=== PATIENT | female | born 1980 | race Caucasian/White ===

== ENCOUNTER 2021-09-29 09:33 | Emergency (ER) | payer BC, MEDICAID, SELFPAY ==
[2021-09-29 09:44] VITALS: BP 153/88; PULSE 98; RESP 18; TEMP 37.2; O2SAT 99
--- NOTE | 2021-09-29 10:19 | ED.URI ---
HPI - URI/Sore Throat General Chief Complaint: Upper Respiratory Infection Stated Complaint: upper respiratory Source: patient Mode of arrival: ambulatory Limitations: no limitations History of Present Illness HPI Narrative: Patient is a 40-year-old female who presents complaining of of cough, congestion x5 days. She also reports sore throat and reports slight tightness in chest. She reports Covid testing by PCR negative on . She reports taking [id number] Mucinex with limited relief. She denies all other complaints at this time. Related Data Home Medications Medication Instructions Recorded Confirmed metformin 1,000 mg PO BID 09/29/21 09/29/21 Allergies Allergy/AdvReac Type Severity Reaction Status Date / Time No Known Allergies Verified 09/29/21 10:41 Review of Systems Review of Systems: CONSTITUTIONAL: Denies fever, chills, or sweats. EYES: Denies visual changes, redness, or discharge. ENT: Reports congestion and sore throat CARDIOVASCULAR: Denies chest pain, palpitations, or edema. RESPIRATORY: Reports cough, denies dyspnea. GASTROINTESTINAL: Denies abdominal pain, nausea, vomiting, or diarrhea. GENITOURINARY: Denies dysuria or hematuria. SKIN: Denies rash or itching. MUSCULOSKELETAL: Denies back pain, joint pain, or myalgia. NEUROLOGIC: Denies headache, numbness, dizziness, or weakness. PSYCHIATRIC: Denies anxiety or depression. [facility] Past Medical History Medical History (Updated 09/29/21 @ 11:37 by SHAKIR Winkler) Anemia Diabetes GERD (gastroesophageal reflux disease) Hypercholesterolemia induced hypertension Surgical History Surgical History History of lumpectomy of right breast Hx of tonsillectomy Family History Family History Other Diabetes mellitus Family history of Hodgkin's lymphoma Family history of alcoholism Family history of cardiovascular disease Family history of chronic obstructive pulmonary disease Family history of glaucoma Hypertension Social History Social History (Updated 09/29/21 @ 11:37 by SHAKIR Winkler) Smoking status: Never smoker Alcohol intake: never Substance use: never Living arrangements: with family Comments At the time of signature, I have reviewed and agree with nursing past medical, surgical, social, and family history unless otherwise noted. Please see nursing chart for further information. There is no relevant family history pertinent to the presenting complaint. Exam Narrative: GENERAL: Well-appearing, well-nourished, and in no acute distress. HEAD: Normocephalic, atraumatic. EYES: EOMI. No redness or drainage. Conjunctiva are normal. ENT: Mucous membranes pink and moist. Nares clear. No rhinorrhea. TMs normal bilaterally. Throat with moderate erythema and edema. Uvula midline. NECK: AROM. Supple. No lymphadenopathy. CHEST: No respiratory distress. HEART: Regular rate and rhythm. EXTREMITIES: Normal range of motion. No edema. SKIN: Warm, dry, no rash. NEURO: No focal deficits. Alert and oriented x3. Gait steady. PSYCH: Normal affect. No signs of depression or anxiety. Course Vital Signs Vital signs: Vital Signs Temperature 37.2 C 09/29/21 09:44 Pulse Rate 98 09/29/21 09:44 Respiratory Rate 18 09/29/21 09:44 Blood Pressure 153/88 H 09/29/21 09:44 Pulse Oximetry 99 09/29/21 09:44 Temperature 37.2 C 09/29/21 09:44 Pulse Rate 98 09/29/21 09:44 Respiratory Rate 18 09/29/21 09:44 Blood Pressure 153/88 H 09/29/21 09:44 Pulse Oximetry 99 09/29/21 09:44 Reviewed-patient is informed that they may have pre-hypertension or hypertension based on a blood pressure reading. I recommend the patient call the primary care provider listed on their discharge instructions or a physician of their choice this week to arrange follow-up for further evaluati
== END 2021-09-29 10:25 | disposition home or self-care (01) ==
PROVIDERS: Emergency Provider Nurse Practitioner; PCP Nurse Practitioner Family
DX: J06.9 Acute upper respiratory infection, unspecified (principal); J02.9 Acute pharyngitis, unspecified; D64.9 Anemia, unspecified; E11.9 Type 2 diabetes mellitus without complications; K21.9 Gastro-esophageal reflux disease without esophagitis; E78.00 Pure hypercholesterolemia, unspecified
CPT/HCPCS: 99203; G0463

== ENCOUNTER 2022-05-07 14:30 | Emergency (ER) | payer BC, MEDICAID, SELFPAY ==
[2022-05-07 14:37] VITALS: BP 131/74; PULSE 84; RESP 16; TEMP 36.9; O2SAT 99
--- NOTE | 2022-05-07 14:41 | ED.URI ---
HPI - URI/Sore Throat General Chief Complaint: Upper Respiratory Infection Stated Complaint: Sore Throat Time Seen by Provider: 05/07/22 14:41 Source: patient and RN notes reviewed History of Present Illness HPI Narrative: Patient is a 41-year-old female who presents the urgent care with complaints of a sore throat for the last 3 days. Patient states that it for started off with a mild cough and congestion and then turned into a severe sore throat. Patient states that she has a weekly COVID test at work and her last 1 was today which was negative. Denies of any ill exposures, fever, nausea, vomiting or upper respiratory complaints. No acute distress noted. Patient read the plan of care. Some parts of this dictation were generated by voice recognition software and may contain typographical and/or grammatical inaccuracies. Related Data Home Medications Medication Instructions Recorded Confirmed metformin 1,000 mg tablet 1,000 mg PO BID 09/29/21 05/07/22 methimazole 10 mg tablet 10 mg PO DAILY 05/07/22 05/07/22 metoprolol tartrate 05/07/22 Allergies Allergy/AdvReac Type Severity Reaction Status Date / Time No Known Allergies Verified 05/07/22 14:55 Review of Systems Review of Systems: CONSTITUTIONAL: Denies fever, chills, or sweats. EYES: Denies visual changes, redness, or discharge. ENT: Reports of sore throat, postnasal drainage and congestion CARDIOVASCULAR: Denies chest pain, palpitations, or edema. RESPIRATORY: Denies cough or dyspnea. GASTROINTESTINAL: Denies abdominal pain, nausea, vomiting, or diarrhea. GENITOURINARY: Denies dysuria or hematuria. SKIN: Denies rash or itching. MUSCULOSKELETAL: Denies back pain, joint pain, or myalgia. NEUROLOGIC: Denies headache, numbness, or weakness. All other systems reviewed are negative, except as documented in HPI. [facility] Past Medical History Medical History (Updated 05/07/22 @ 15:06 by SHAKIR Christianson) Anemia Diabetes GERD (gastroesophageal reflux disease) Hypercholesterolemia induced hypertension Surgical History Surgical History History of lumpectomy of right breast Hx of tonsillectomy Family History Family History Other Diabetes mellitus Family history of Hodgkin's lymphoma Family history of alcoholism Family history of cardiovascular disease Family history of chronic obstructive pulmonary disease Family history of glaucoma Hypertension Social History Social History (Updated 09/29/21 @ 11:37 by Lorna Melendez, [facility]) Smoking status: Never smoker Alcohol intake: never Substance use: never Comments At the time of my signature, I reviewed and agree with the nursing past medical, surgical, social, and family history. There is no relevant family history pertinent to the patient complaint. Exam Narrative: GENERAL: This is a well-nourished, well-developed patient, in no apparent distress. HEAD: normocephalic, atraumatic. EYES: PERRL. Sclera clear/white. Vision is grossly intact. EARS: External ears normal, auditory canals clear and without drainage, TMs normal without perforation. Hearing grossly intact. NOSE: External nose normal with no obvious nasal discharge, nares without redness, no rhinorrhea. THROAT: Mucous membranes moist, moderate erythema noted posterior pharynx and mild bilateral exudate NECK: Neck supple, non-tender without lymphadenopathy CARDIOVASCULAR: Regular rate and rhythm without murmurs, gallops, or rubs. RESPIRATORY: Clear to auscultation. Breath sounds equal bilaterally. No wheezes, rales, or rhonchi. SKIN: warm, intact with no suspicious lesions or rash, good texture and turgor. NEURO: awake, alert, and oriented to person, place and time. There were no obvious focal neurologic abnormalities. EXTREMITIES: No clubbing, cyanosis, or edema. Course Course Level of Care: Carson Mehta
== END 2022-05-07 15:15 | disposition home or self-care (01) ==
PROVIDERS: Emergency Provider Nurse Practitioner Family; PCP Nurse Practitioner Family
DX: J02.9 Acute pharyngitis, unspecified (principal); E11.9 Type 2 diabetes mellitus without complications; K21.9 Gastro-esophageal reflux disease without esophagitis; E78.00 Pure hypercholesterolemia, unspecified; Z79.84 Long term (current) use of oral hypoglycemic drugs
CPT/HCPCS: 87081; 87880; 99213; G0463

== ENCOUNTER 2022-12-01 08:25 | Outpatient (CLI) | payer BC, MEDICAID, SELFPAY ==
--- NOTE | ~2022-12-01 | MR_ITS ---
MRI of the lumbar spine Clinical History: Pain, neuropathy Technique: Axial T2-weighted images, and sagittal T1-weighted, T2-weighted, and T2 fat-sat images wer e acquired. Findings: No fracture or subluxation seen in the lumbar spine. Vertebral bodies maintain normal heigh t and alignment. No suspicious bone marrow signal abnormality seen. At L1-L2 and L2-L3, there is no disc bulge or herniation. No spinal canal stenosis or neural foramina l narrowing at these levels. At L3-L4, there is a central disc protrusion superimposed upon mild diffuse disc bulge. There is mini mal compression of the ventral thecal sac at this level. Neural foramina are preserved. At L4-L5, there is a small central disc protrusion with annular tear. There is mild facet arthropathy . No spinal canal stenosis or neural foraminal narrowing. At L5-S1, there is advanced degenerative disc disease with diffuse disc bulge and small disc extrusio n centrally. There is focal mild thecal sac compression. There is facet arthropathy. There is moderat e to advanced right neural foraminal narrowing and [id number] left neural foraminal narrowing. Paravertebral soft tissues are unremarkable. Impression: Small disc extrusion at L5-S1 with underlying advanced degenerative disc change. Associated bilateral neural foraminal narrowing and mild thecal sac compression. Central disc protrusion at L3-L4 superimposed on disc bulge, with minimal compression of the ventral thecal sac. Annular tear within a small central disc protrusion at L4-L5. Reviewed, dictated and finalized at [facility]. TITATIVE MANAGER Impression: Small disc extrusion at L5-S1 with underlying advanced degenerative disc change . Associated bilateral neural foraminal narrowing and mild thecal sac compressi on. Central disc protrusion at L3-L4 superimposed on disc bulge, with minimal compr ession of the ventral thecal sac. Annular tear within a small central disc protrusion at L4-L5.
== END 2022-12-01 08:26 | disposition home or self-care (01) ==
PROVIDERS: PCP Internal Medicine; Visit Provider Internal Medicine
DX: M54.16 Radiculopathy, lumbar region (principal); M51.27 Other intervertebral disc displacement, lumbosacral region
CPT/HCPCS: 72148

== ENCOUNTER 2022-12-03 08:18 | Outpatient (CLI) | payer BC, MEDICAID, SELFPAY ==
[2022-12-03 20:18] LABS: Alanine Aminotransferase 40 U/L (6-35); Albumin Level 4.6 g/dL (3.5-5.1); Alkaline Phosphatase 40 U/L (38-126); Anion Gap 9 mmol/L (8-16); Aspartate Amino Transferase 46 U/L (14-36); Bilirubin,Total 0.3 mg/dL (0.2-1.3); Blood Urea Nitrogen 8 mg/dL (7-17); Calcium 9.2 mg/dL (8.4-10.2); Carbon Dioxide 26 mmol/L (22-30); Chloride 106 mmol/L (98-107); Cholesterol 224 mg/dL (0-200); Estimated Glomerular Filt Rate > 60; Glucose 124 mg/dL (65-110); HDL Direct 36 mg/dL; Potassium 4.3 mmol/L (3.4-5.0); Sodium 141 mmol/L (137-145); Triglycerides 236 mg/dL (<150)
[2022-12-03 20:40] LABS: Basophils Percent Auto 0.3 % (0.2-1.2); Eosinophils Absolute Auto 0.1 K/mm3 (0-0.3); Eosinophils Percent Auto 1.8 % (0-4.4); Hematocrit 39.9 % (37.0-47.0); Hemoglobin 13.3 g/dL (12.0-15.0); Immature Granulocyte Absolute 0.01 K/mm3 (0.00-0.031); Immature Granulocyte Percent A 0.2 % (0-0.5); Lymphocytes Absolute Auto 2.07 K/mm3 (0.9-3.2); Mean Corpuscular HGB Conc 33.3 g/dl (32-36); Mean Corpuscular Hemoglobin 31.1 pg (26-34); Mean Corpuscular Volume 93.2 fl (80-100); Mean Platelet Volume 8.6 fl (7.4-10.4); Monocytes Absolute Auto 0.4 K/mm3 (0.1-0.6); Monocytes Percent Auto 5.9 % (2.6-8.5); Neutrophils Absolute Auto 3.5 K/mm3 (1.3-6.7); Neutrophils Percent Auto 57.8 % (45.5-73.1); Platelet Count Result 317 k/mm3 (150-375); Red Blood Count 4.28 M/mm3 (4.2-5.4); Red Cell Distribution Width 12.5 % (11.5-14.5); White Blood Count 6.1 K/mm3 (4.5-10.0)
[2022-12-03 21:23] LABS: Creatinine Urine 37.4 mg/dL
[2022-12-03 21:27] LABS: MALB Creatinine Ratio 55.1 mg/g (0-30); Microalbumin Urine Random 20.6 mg/L (0-16.7)
[2022-12-03 21:30] LABS: Folic Acid > 20.0 ng/mL (2.76->20)
[2022-12-03 22:17] LABS: LDL Cholesterol Direct 133 mg/dL
[2022-12-05 11:39] LABS: Hemoglobin A1C 6.3 % (<5.7)
== END 2022-12-03 08:19 | disposition home or self-care (01) ==
LOC: ANHGOSHLAB 08:20
PROVIDERS: PCP Internal Medicine; Visit Provider Internal Medicine
DX: E78.00 Pure hypercholesterolemia, unspecified (principal); E05.90 Thyrotoxicosis, unspecified without thyrotoxic crisis or storm; E11.9 Type 2 diabetes mellitus without complications
CPT/HCPCS: 36415; 80053; 80061; 82043; 82607; 82746; 83036; 85025

== ENCOUNTER 2023-08-07 08:00 | Outpatient (CLI) | payer BC, MEDICAID, SELFPAY ==
[2023-08-07 15:04] LABS: Alanine Aminotransferase 26 U/L (6-35); Albumin Level 4.7 g/dL (3.5-5.1); Alkaline Phosphatase 40 U/L (38-126); Anion Gap 8 mmol/L (8-16); Aspartate Amino Transferase 40 U/L (14-36); Bilirubin,Total 0.4 mg/dL (0.2-1.3); Blood Urea Nitrogen 7 mg/dL (7-17); Calcium 9.1 mg/dL (8.4-10.2); Carbon Dioxide 30 mmol/L (22-30); Chloride 102 mmol/L (98-107); Cholesterol 203 mg/dL (0-200); Estimated Glomerular Filt Rate > 60; Glucose 106 mg/dL (65-110); HDL Direct 36 mg/dL; Potassium 4.3 mmol/L (3.4-5.0); Sodium 140 mmol/L (137-145); Triglycerides 144 mg/dL (<150)
[2023-08-07 15:15] LABS: LDL Cholesterol Direct 130 mg/dL
[2023-08-07 15:32] LABS: Creatinine Urine 113.4 mg/dL
[2023-08-07 15:35] LABS: Microalbumin Urine Random 38.5 mg/L (0-16.7)
== END 2023-08-07 08:01 | disposition home or self-care (01) ==
LOC: ANHGOSHLAB 08:04
PROVIDERS: PCP Internal Medicine; Visit Provider Internal Medicine
DX: R80.9 Proteinuria, unspecified (principal); R74.8 Abnormal levels of other serum enzymes; E78.00 Pure hypercholesterolemia, unspecified; E11.29 Type 2 diabetes mellitus with other diabetic kidney complication
CPT/HCPCS: 36415; 80053; 80061; 82043; 83036

== ENCOUNTER 2023-08-12 15:45 | Outpatient (CLI) | payer BC, MEDICAID, SELFPAY ==
[2023-08-12 18:32] LABS: Basophils Percent Auto 0.7 % (0.2-1.2); Eosinophils Absolute Auto 0.1 K/mm3 (0-0.3); Eosinophils Percent Auto 2.4 % (0-4.4); Hematocrit 39.1 % (37.0-47.0); Hemoglobin 13.2 g/dL (12.0-15.0); Immature Granulocyte Absolute 0.01 K/mm3 (0.00-0.031); Immature Granulocyte Percent A 0.2 % (0-0.5); Lymphocytes Absolute Auto 2.28 K/mm3 (0.9-3.2); Lymphocytes Percent Auto 38.8 % (18.3-44.2); Mean Corpuscular HGB Conc 33.8 g/dl (32-36); Mean Corpuscular Hemoglobin 30.8 pg (26-34); Mean Corpuscular Volume 91.4 fl (80-100); Mean Platelet Volume 8.8 fl (7.4-10.4); Monocytes Absolute Auto 0.4 K/mm3 (0.1-0.6); Monocytes Percent Auto 6.1 % (2.6-8.5); Neutrophils Absolute Auto 3.1 K/mm3 (1.3-6.7); Neutrophils Percent Auto 51.8 % (45.5-73.1); Platelet Count Result 336 k/mm3 (150-375); Red Blood Count 4.28 M/mm3 (4.2-5.4); Red Cell Distribution Width 11.9 % (11.5-14.5); White Blood Count 5.9 K/mm3 (4.5-10.0)
[2023-08-12 19:09] LABS: Thyroid Stimulating Hormone 0.151 uIU/mL (0.465-4.680)
[2023-08-12 20:00] LABS: Folic Acid > 20.0 ng/mL (2.76->20)
== END 2023-08-12 15:46 | disposition home or self-care (01) ==
LOC: ANHGOSHLAB 15:47
PROVIDERS: PCP Internal Medicine; Visit Provider Internal Medicine
DX: E05.90 Thyrotoxicosis, unspecified without thyrotoxic crisis or storm (principal); E11.9 Type 2 diabetes mellitus without complications; R53.83 Other fatigue
CPT/HCPCS: 36415; 82607; 82728; 82746; 84443; 85025

== ENCOUNTER 2023-12-25 08:39 | Outpatient (CLI) | payer BC, MEDICAID, SELFPAY ==
[2023-12-25 19:47] LABS: Basophils Percent Auto 0.6 % (0.2-1.2); Eosinophils Absolute Auto 0.1 K/mm3 (0-0.3); Eosinophils Percent Auto 2.1 % (0-4.4); Hematocrit 41.7 % (37.0-47.0); Hemoglobin 13.7 g/dL (12.0-15.0); Lymphocytes Absolute Auto 1.84 K/mm3 (0.9-3.2); Mean Corpuscular HGB Conc 32.9 g/dl (32-36); Mean Corpuscular Hemoglobin 30.6 pg (26-34); Mean Corpuscular Volume 93.3 fl (80-100); Mean Platelet Volume 8.8 fl (7.4-10.4); Monocytes Absolute Auto 0.3 K/mm3 (0.1-0.6); Monocytes Percent Auto 6.3 % (2.6-8.5); Neutrophils Absolute Auto 2.9 K/mm3 (1.3-6.7); Platelet Count Result 310 k/mm3 (150-375); Red Blood Count 4.47 M/mm3 (4.2-5.4); Red Cell Distribution Width 12.5 % (11.5-14.5); White Blood Count 5.3 K/mm3 (4.5-10.0)
[2023-12-25 19:48] LABS: LDL Cholesterol Direct 136 mg/dL
[2023-12-25 19:53] LABS: Creatinine Urine 62.7 mg/dL
[2023-12-25 20:00] LABS: MALB Creatinine Ratio 95.7 mg/g (0-30)
[2023-12-25 20:06] LABS: Thyroid Stimulating Hormone < 0.015 uIU/mL (0.465-4.680)
[2023-12-25 21:17] LABS: Alanine Aminotransferase 63 U/L (6-35); Albumin Level 4.6 g/dL (3.5-5.1); Alkaline Phosphatase 47 U/L (38-126); Anion Gap 10 mmol/L (8-16); Aspartate Amino Transferase 64 U/L (14-36); Bilirubin,Total 0.5 mg/dL (0.2-1.3); Blood Urea Nitrogen 9 mg/dL (7-17); Calcium 9.6 mg/dL (8.4-10.2); Carbon Dioxide 24 mmol/L (22-30); Chloride 103 mmol/L (98-107); Cholesterol 227 mg/dL (0-200); Estimated Glomerular Filt Rate > 60; Glucose 150 mg/dL (65-110); HDL Direct 34 mg/dL; Sodium 137 mmol/L (137-145); Triglycerides 302 mg/dL (<150)
[2023-12-25 21:25] LABS: Potassium 4.3 mmol/L (3.4-5.0)
[2023-12-25 23:32] LABS: Hemoglobin A1C 6.5 % (<5.7)
[2023-12-29 22:21] LABS: Apolipoprotein B 121 mg/dL (<90)
[2024-01-05 13:32] LABS: Estrogen 141 pg/mL
== END 2023-12-25 08:40 | disposition home or self-care (01) ==
LOC: ANHGOSHLAB 08:41
PROVIDERS: PCP Internal Medicine; Visit Provider Internal Medicine
DX: N95.1 Menopausal and female climacteric states (principal); E11.9 Type 2 diabetes mellitus without complications; E78.00 Pure hypercholesterolemia, unspecified; R74.8 Abnormal levels of other serum enzymes; R80.9 Proteinuria, unspecified; E05.90 Thyrotoxicosis, unspecified without thyrotoxic crisis or storm
CPT/HCPCS: 36415; 80053; 80061; 82043; 82172; 82672; 83001; 83036; 84443; 85025

== ENCOUNTER 2024-02-18 07:59 | Outpatient (CLI) | payer BC, MEDICAID, SELFPAY ==
[2024-02-18 13:40] LABS: Free T4 Free Thyroxine 0.88 ng/mL (0.78-2.19)
== END 2024-02-18 08:00 | disposition home or self-care (01) ==
LOC: ANHGOSHLAB 08:01
PROVIDERS: PCP Internal Medicine; Visit Provider Internal Medicine
DX: E05.90 Thyrotoxicosis, unspecified without thyrotoxic crisis or storm (principal)
CPT/HCPCS: 36415; 84439; 84443

== ENCOUNTER 2024-05-04 07:56 | Outpatient (CLI) | payer BC, MEDICAID, SELFPAY ==
[2024-05-04 12:53] LABS: Basophils Percent Auto 0.6 % (0.2-1.2); Eosinophils Absolute Auto 0.2 K/mm3 (0-0.3); Eosinophils Percent Auto 4.6 % (0-4.4); Hematocrit 38.9 % (37.0-47.0); Hemoglobin 13.2 g/dL (12.0-15.0); Immature Granulocyte Absolute 0.02 K/mm3 (0.00-0.031); Immature Granulocyte Percent A 0.4 % (0-0.5); Lymphocytes Absolute Auto 1.67 K/mm3 (0.9-3.2); Lymphocytes Percent Auto 33.5 % (18.3-44.2); Mean Corpuscular HGB Conc 33.9 g/dl (32-36); Mean Corpuscular Hemoglobin 31.4 pg (26-34); Mean Corpuscular Volume 92.4 fl (80-100); Monocytes Absolute Auto 0.3 K/mm3 (0.1-0.6); Neutrophils Absolute Auto 2.7 K/mm3 (1.3-6.7); Neutrophils Percent Auto 54.9 % (45.5-73.1); Platelet Count Result 316 k/mm3 (150-375); Red Blood Count 4.21 M/mm3 (4.2-5.4); Red Cell Distribution Width 12.6 % (11.5-14.5)
[2024-05-04 13:06] LABS: Alanine Aminotransferase 44 U/L (6-35); Albumin Level 4.6 g/dL (3.5-5.1); Alkaline Phosphatase 41 U/L (38-126); Anion Gap 12 mmol/L (4-12); Aspartate Amino Transferase 54 U/L (14-36); Bilirubin,Total 0.6 mg/dL (0.2-1.3); Blood Urea Nitrogen 11 mg/dL (7-17); Calcium 9.7 mg/dL (8.4-10.2); Carbon Dioxide 21 mmol/L (22-30); Chloride 106 mmol/L (98-107); Cholesterol 218 mg/dL (0-200); Estimated Glomerular Filt Rate > 60; Glucose 124 mg/dL (65-110); HDL Direct 35 mg/dL; Potassium 4.1 mmol/L (3.4-5.0); Sodium 139 mmol/L (137-145); Triglycerides 237 mg/dL (<150)
[2024-05-04 13:17] LABS: LDL Cholesterol Direct 141 mg/dL
[2024-05-04 13:48] LABS: Hemoglobin A1C 6.3 % (<5.7)
[2024-05-18 15:19] LABS: Apolipoprotein B 118 mg/dL
== END 2024-05-04 07:57 | disposition home or self-care (01) ==
LOC: ANHGOSHLAB 07:57
PROVIDERS: PCP Clinical Nurse Specialist; Visit Provider Internal Medicine
DX: E05.90 Thyrotoxicosis, unspecified without thyrotoxic crisis or storm (principal); E11.9 Type 2 diabetes mellitus without complications; E78.00 Pure hypercholesterolemia, unspecified
CPT/HCPCS: 36415; 80053; 80061; 82172; 83036; 84443; 85025

== ENCOUNTER 2024-08-06 07:55 | Outpatient (CLI) | payer BC, MEDICAID, SELFPAY ==
[2024-08-06 15:39] LABS: Alanine Aminotransferase 33 U/L (6-35); Albumin Level 4.5 g/dL (3.5-5.1); Alkaline Phosphatase 41 U/L (38-126); Anion Gap 10 mmol/L (4-12); Aspartate Amino Transferase 46 U/L (14-36); Bilirubin,Total 0.3 mg/dL (0.2-1.3); Blood Urea Nitrogen 8 mg/dL (7-17); Calcium 8.9 mg/dL (8.4-10.2); Carbon Dioxide 26 mmol/L (22-30); Chloride 101 mmol/L (98-107); Estimated Glomerular Filt Rate > 60; Glucose 104 mg/dL (65-110); Potassium 4.2 mmol/L (3.4-5.0); Sodium 137 mmol/L (137-145)
[2024-08-06 16:18] LABS: Creatinine Urine 236.5 mg/dL
[2024-08-06 16:22] LABS: MALB Creatinine Ratio 18.4 mg/g (0-30); Microalbumin Urine Random 43.5 mg/L (0-16.7)
[2024-08-06 16:44] LABS: Hemoglobin A1C 6.7 % (<5.7)
[2024-08-06 17:36] LABS: Vitamin D 25 Hydroxy 45.7 ng/mL
== END 2024-08-06 07:56 | disposition home or self-care (01) ==
LOC: ANHGOSHLAB 07:57
PROVIDERS: PCP Clinical Nurse Specialist; Visit Provider Clinical Nurse Specialist
DX: E11.9 Type 2 diabetes mellitus without complications (principal); R74.8 Abnormal levels of other serum enzymes; R80.9 Proteinuria, unspecified; E55.9 Vitamin D deficiency, unspecified; R74.01 Elevation of levels of liver transaminase levels
CPT/HCPCS: 36415; 80053; 82043; 82306; 83036

== ENCOUNTER 2025-01-03 12:02 | Emergency (ER) | payer BC, MEDICAID, SELFPAY ==
--- NOTE | ~2025-01-03 | XR_ITS ---
EXAMINATION: XR sacrum coccyx min 2V DATE: 01/03/2025 12:31 INDICATION: Tailbone pain. Fall. TECHNIQUE: 3 views of the sacrum and coccyx were obtained. COMPARISON: None. FINDINGS: Alignment is normal. No fracture. There is severe spondylosis at L5-S1. There is mild osteo arthritis of the sacroiliac joints. IMPRESSION: 1. No fracture. Reviewed, dictated and finalized at location A. ENSATION SPECIALIST IMPRESSION: 1. No fracture.
--- NOTE | 2025-01-03 12:07 | ED.LOWEXIN ---
HPI - Extremity Injury (Lower) General Chief Complaint: Extremity Injury, Lower Stated Complaint: Injured Tailbone Time Seen by Provider: 01/03/25 12:10 Source: patient Mode of arrival: ambulatory Limitations: no limitations History of Present Illness HPI Narrative: Fabiana is a 44-year-old female patient presenting to the clinic today with complaints of a tailbone injury. She reports that she fell 3 days ago when trying to get in to a PE. She reports that she fell onto the metal foot step on the jeep when trying to get in. Landed on her tailbone. Is having pain with sitting, lying flat, and standing in certain positions. She has been taking ibuprofen for pain. Related Data Allergies Allergy/AdvReac Type Severity Reaction Status Date / Time tramadol AdvReac Itching Verified 01/03/25 12:07 Review of Systems Review of Systems: Pertinent positives per HPI. Patient denies any fever, chills, rash, headache, visual changes, dizziness, cough, runny nose, sore throat, shortness of breath, chest pain, palpitations, nausea, vomiting, diarrhea, constipation, abdominal pain, or any urinary issues. [facility] Past Medical History Medical History Elevated liver enzymes Microalbuminuria due to type 2 diabetes mellitus Microalbuminuria Hyperthyroidism Lumbar radiculopathy, right Sciatic leg pain Thyroid disorder Diabetes Anemia induced hypertension GERD (gastroesophageal reflux disease) Hypercholesterolemia Surgical History Surgical History History of lumpectomy of right breast Hx of tonsillectomy Family History Family History Mother Diabetes mellitus Heart disease Hypertension Sibling Alcoholism Cancer Daughter Diabetes mellitus Other Family history of Hodgkin's lymphoma Family history of alcoholism Family history of cardiovascular disease Family history of chronic obstructive pulmonary disease Family history of glaucoma Social History Social History Smoking status: Current some day smoker Tobacco type: e-cigarettes/vaping Additional smoking assessment comments: smoked on and off for 20 years stopped a few years ago Alcohol intake: never Substance use: never Do You Feel Safe in your Home?: Yes Lack of Transportation: No Lack of Food: Never True Current Housing: I Have Housing Concerned About Future Housing: No Difficulty Paying Gas/Electric Bills: No Difficulty Paying for Meds: No Currently Unemployed: No Education: Trade/Vocational Certificate Difficulty w/ Childcare or Family Care: No Living arrangements: with family Comments At the time of my signature, I reviewed and agree with the nursing past medical, surgical, social, and family history. There is no relevant family history pertinent to the patient complaint. Exam Narrative: General: Well-developed, well nourished, in no apparent distress Head: Normocephalic, atraumatic. Cardio: Regular rate and rhythm, s1 and s2 normal, no murmur appreciated. Resp: Clear to auscultation bilaterally, no rhonchi, rales, wheezing or rubs. Musculoskeletal: No deformity, no bruising, tender to palpation over the coccyx, grossly normal range of motion, muscle strength strong and equal in BLE. SLT negative, patellar reflexes 2/4 bilaterally, negative foot drop, normal gait and station Course Course Emergency Course: Portions of this record may have been created with voice recognition software. Level of Care: Express Care Visit Vital Signs Vital signs: Vital signs reviewed MDM - Extremity Injury (Lower) MDM Narrative Medical decision making narrative: At the time of visit patient is resting comfortably on the exam table. Patient appears to be nontoxic. Diagnostics: X-rays negative for any sign of fracture or malalignment of the sacrum. Plan: I suspect patient has a sacrum contusion. Supportive measures were discussed with the patient and they voiced understanding discharge instructions and agrees to treatment plan. Return precautions reviewed Differential Diagnosis Differential diagnosis: Likely other (Contusion of sacrum, fracture sacrum) Imaging Data Radiologist's impression: ITS Impressions Sacrum and Coccyx X-Ray 01/03/25 12:36 IMPRESSION: 1. No fracture. Discharge Plan Discharge Clinical Impression: Contusion of sacrum Qualifiers: Encounter type: initial encounter Qualified Code(s): S30.0XXA - Contusion of lower back and pelvis, initial encounter Patient Disposition: Home, Self-Care Condition: Stable Instructions: Antibiotic Form, Contusion in Adults (ED) Additional Instructions: X-rays negative for any sign of fracture or malalignment May use a donut pillow for comfort. Apply ice to the affected area to help alleviate pain-20 minutes on/20 minutes off Continue taking ibuprofen and Tylenol as needed for pain Follow-up with your primary care doctor as needed Patient Language: Setswana Prescriptions: No Action methimazole 5 mg tablet 5 mg PO BID Qty: 270 0RF metformin 1,000 mg tablet 1,000 mg PO BID Qty: 180 1RF metoprolol succinate 25 mg tablet extended release 24 hr See Rx Instructions .ROUTE .COMPLEX Qty: 45 1RF Dose Instruction: TAKE 1/2 TABLET BY MOUTH ONCE DAILY Rx Instructions: TAKE 1/2 TABLET BY MOUTH ONCE DAILY Follow-up/Referrals: Kianna Stahl FORMULA WEIGHER-C [Primary Care Provider] - Time of Disposition: 12:44 Quality NIHSS Nursing Documentation ED NIHSS nursing documentation: reviewed/agree
[2025-01-03 12:08] VITALS: BP 125/84; PULSE 93; RESP 18; TEMP 36.8; O2SAT 100
== END 2025-01-03 12:47 | disposition home or self-care (01) ==
PROVIDERS: Emergency Provider Nurse Practitioner Family; PCP Clinical Nurse Specialist
DX: S30.0XXA Contusion of lower back and pelvis, initial encounter (principal); W19.XXXA Unspecified fall, initial encounter; E05.90 Thyrotoxicosis, unspecified without thyrotoxic crisis or storm; E11.9 Type 2 diabetes mellitus without complications; Z79.84 Long term (current) use of oral hypoglycemic drugs; E78.00 Pure hypercholesterolemia, unspecified; K21.9 Gastro-esophageal reflux disease without esophagitis
CPT/HCPCS: 72220; 99213; G0463

== ENCOUNTER 2025-04-13 12:36 | Outpatient (CLI) | payer BC, SELFPAY ==
--- NOTE | ~2025-04-13 | CT_ITS ---
EXAMINATION: CT abdomen pelvis w con DATE: 04/13/2025 11:04 INDICATION: Unspecified abdominal pain TECHNIQUE: Computed tomography (CT) of the abdomen and pelvis was performed with 100 mL Omnipaque-350 intravenous contrast. Automated exposure control and iterative reconstruction technique were employe d. The dose-length product was 1131.60 mGy-cm. COMPARISON: CT dated 05/01/2005 FINDINGS: Lung bases are clear. Heart size is normal. No pericardial or pleural effusion. Mild diffuse hepatic steatosis. Gallbladder, spleen, pancreas, bilateral adrenal glands and kidneys are normal. Moderate d iverticulosis centered at the splenic flexure the colon without adjacent from trace stranding to sugg est diverticulitis. Small bowel and appendix are normal. Bladder and anteverted uterus are normal. 1. 5 cm left ovarian cyst/follicle. 2.2 cm peripherally enhancing corpus luteum cyst in the right ovary. No free intraperitoneal gas or fluid. No pathologically enlarged abdominal or pelvic lymphadenopathy . Severe spondylosis at the lumbosacral junction with mild spondylosis and more cephalad lumbar and l ower thoracic spine. IMPRESSION: 1. 2.2 cm peripherally enhancing right ovarian corpus luteum cyst. No other acute intra-abdominal/pel christin process. 2. Diverticulosis. Reviewed, dictated and finalized at location A. IMPRESSION: 1. 2.2 cm peripherally enhancing right ovarian corpus luteum cyst. No other acu te intra-abdominal/pelvic process. 2. Diverticulosis.
--- OUTSIDE RECORDS SUMMARY | 2025-04-13 10:39 | XMS_ITS | Referral Summary ---
Author Organization [facility] Address [address] [place] [address] Care Team Providers Care Examination Supervisor Name Role Phone Regan Cortez DO Primary Care Provider [phone] Encounters Date Type Department Care Team Description 03/11/2025 Results Follow-Up [facility] [address] [address] Issa Talbert MD US Thyroid 03/08/2025 Results Follow-Up [facility] [address] [address] Issa Talbert MD TSH, T4, free, T3, free 02/28/2025 3:05 PM CDT - 02/28/2025 11:59 PM CDT Hospital Encounter [facility] [address] [place] [address] Multinodular goiter Discharge Disposition: Discharge to home or self care from Last 3 Months Allergies Active Allergy Reactions Criticality Noted Date Comments Amoxicillin Other (See comments) Low 10/07/2021 Tramadol Itching Low 10/07/2021 Medications metFORMIN (GLUCOPHAGE) 1,000 mg tablet Take 1 tablet (1,000 mg total) by mouth 2 (two) times a day with meals Active omeprazole (PriLOSEC) 20 mg capsule omeprazole 20 mg capsule,delayed release TAKE 1 CAPSULE BY MOUTH EVERY DAY Active cyclobenzaprine (FLEXERIL) 10 mg tablet Take 1 tablet (10 mg total) by mouth 3 (three) times a day as needed for muscle spasms 12 tablet 2 Active Additional Information Patient not taking.Reported on 11/15/2024 metoprolol XL (TOPROL-XL) 25 mg extended release tablet Take 0.5 tablets (12.5 mg total) by mouth daily 4 Active methIMAzole (TAPAZOLE) 5 mg tabletIndicatio ns:Hyperthyroid ism TAKE 2 TABLETS BY MOUTH EVERY DAY 60 tablet 2 5 Active Active Problems Problem Noted Date Diagnosed Date Rectocele 03/12/2024 Incomplete uterovaginal prolapse 12/26/2023 Cystocele, midline 12/26/2023 Urinary retention with incomplete bladder emptyi ng 12/26/2023 Mixed stress and urge urinary incontinence 12/26 External hemorrhoid 06/13/2022 Multinodular goiter 02/11/2022 Assessment & Plan (11/16/2024 9:40 AM HOTEL OFFICE MANAGER): Chronic, stable Ordered follow-up thyroid ultrasound to follow-up on thyroid nodules No compressive symptoms Assessment & Plan (05/17/2024 10:08 AM CDT): Chronic, stable Reviewed and discussed patient's recent thyroid ultrasound report no compressive symptoms Repeat thyroid ultrasound February 2025 Assessment & Plan (10/23/2023 9:04 AM HOTEL OFFICE MANAGER): Detected on Thyroid ultrasound on 01/05/22 Bilateral nodules between 1.2-1.5 cm stable in size on last ultrasound on 11/13/22 She forgot to do thyroid Ultrasound No clinical change Plan: She will get appt with new Sql Consultant Zaire Mackey/Jamie Repeat thyroid ultrasound with her new Endo. Assessment & Plan (05/26/2023 8:43 AM CDT): Detected on Thyroid ultrasound on 01/05/22 Bilateral nodules between 1.2-1.5 cm stable in size on last ultrasound on 11/13/22 Plan: Will continue to monitor Repeat thyroid ultrasound before next visit . Assessment & Plan (11/25/2022 8:46 AM HOTEL OFFICE MANAGER): Detected on Thyroid ultrasound on 01/05/22 Bilateral nodules between 1.2-1.5 cm stable in size on last ultrasound on 11/13/22 Plan: Will continue to monitor Repeat thyroid ultrasound in one year. Assessment & Plan (07/15/2022 9:20 AM CDT): Detected on Thyroid ultrasound on 01/05/22 Bilateral nodules between 1.2-1.5 cm Mild change in size on last ultrasound on 06/11/22 Plan: Will continue to monitor Repeat thyroid ultrasound in 2022 Assessment & Plan (04/16/2022 8:56 AM CDT): Thyroid ultrasound on 01/05/22 Bilateral nodules between 1.2-1.5 cm Plan: Stable based on clinical examination. Repeat thyroid ultrasound before next visit. Assessment & Plan (02/11/2022 9:04 AM CDT): Thyroid ultrasound on 01/05/22 Bilateral nodules between 1.2-1.5 cm Plan: We will monitor and repeat thyroid ultrasound in 6 month Hyperthyroidism 12/04/2021 Assessment & Plan (11/16/2024 9:40 AM HOTEL OFFICE MANAGER): History of hyperthyroidism, probably due to Graves disease Chronic, improving progressively Recent thyroid function tests are normal Advised to decrease methimazole to 5 mg oral daily Repeat thyroid function test as advised Follow-up in 6 months Assessment & Plan (05/17/2024 10:07 AM CDT): History of hyperthyroidism since 2021 Chronic, unknown status DD: Graves disease versus toxic nodular goiter Patient recently had labs checked with her PCP, we will try to obtain those lab results and further plans based on it For now continue taking methimazole 5 mg oral 3 tablets in morning Repeat a thyroid function test, include thyroid antibodies July 18, 2024 Follow-up in 4 months Assessment & Plan (10/23/2023 9:06 AM HOTEL OFFICE MANAGER): Chronic for few years- did not require treatment Labs on 10/09/21 Low TSH 0.00 High free T4 of 2.3 High free T3 of 5.1. Elevated TSI This could be Graves' disease on top of nodular goiter Started Methimazole on 01/01/22 Patient clinically euthyroid Last TSH was 0.2 on 05/26/23 with normal free T4 Plan: Continue same dose of Methimazole 5 days per week Check labs today I will adjust the dose if needed. Assessment & Plan (05/26/2023 8:41 AM CDT): Chronic for few years- did not require treatment Labs on 10/09/21 Low TSH 0.00 High free T4 of 2.3 High free T3 of 5.1. Elevated TSI This could be Graves' disease on top of nodular goiter Started Methimazole on 01/01/22 Patient clinically euthyroid Last TSH was 0.12 on 01/14/23 with normal free T4 Plan: Continue same dose of Methimazole 5 days per week Check labs today I will adjust the dose if needed. Assessment & Plan (11/25/2022 8:46 AM HOTEL OFFICE MANAGER): Chronic for few years- did not require treatment Labs on 10/09/21 Low TSH 0.00 High free T4 of 2.3 High free T3 of 5.1. Elevated TSI This could be Graves' disease on top of nodular goiter Started Methimazole on 01/01/22 Patient clinically euthyroid normal free T4 of 1.3 and T3 in June/2022 Plan: Continue same dose of Methimazole Continue on Metoprolol ( she is now using it for HTN) Check labs today I will adjust the dose if needed. Assessment & Plan (07/15/2022 9:21 AM CDT): Chronic for few years- did not require treatment Labs on 10/09/21 Low TSH 0.00 High free T4 of 2.3 High free T3 of 5.1. Elevated TSI This could be Graves' disease on top of nodular goiter Started Methimazole on 01/01/22 Patient clinically euthyroid Last TSH was 0.0 with normal free T4 of 1.3 on 04/16/22 Plan: Continue same dose of Methimazole Continue on Metoprolol ( she is now using it for HTN) Check labs today I will adjust the dose if needed. Assessment & Plan (04/16/2022 8:55 AM CDT): Chronic for few years- did not require treatment Labs on 10/09/21 Low TSH 0.00 High free T4 of 2.3 High free T3 of 5.1. Elevated TSI This could be Graves' disease on top of nodular goiter Started Methimazole on 01/01/22 Patient clinically euthyroid Last TSH was 0.0 with free T4 of 1.77 on 02/11/22 Plan: Continue same dose of Methimazole Continue on Metoprolol Check labs today I will adjust the dose if needed. Assessment & Plan (02/11/2022 9:03 AM CDT): Chronic for few years- did not require treatment Labs on 10/09/21 Low TSH 0.00 High free T4 of 2.3 High free T3 of 5.1. Elevated TSI This could be Graves' disease on top of nodular goiter Started Methimazole on 01/01/22 Plan: The diagnosis and abnormal labs reviewed and explained to patient Continue on Metoprolol Check labs today I will adjust the dose if needed. Assessment & Plan (12/04/2021 3:25 PM HOTEL OFFICE MANAGER): Chronic for few years- did not require treatment Enlarged thyroid on exam Labs on 10/09/21 Low TSH 0.00 High free T4 of 2.3 High free T3 of 5.1. This could be Graves' disease or toxic nodular goiter Plan: The possible diagnosis and abnormal labs reviewed and explained to patient Continue on Metoprolol Re- check labs to confirm diagnosis We will schedule thyroid ultrasound if labs confirmed hyperthyroidism. Follow up and further recommendation will be decided after we obtain above test results. Social History Tobacco Use Types Packs/Day Years Used Date Smoking Tobacco: Former Cigarettes Vaping Smokeless Tobacco: Never Tobacco Cessation:Counseling Given: Not Answered Comments:VAPE Alcohol Use Standard Drinks/Week Comments No 0 (1 standard drink = 0.6 oz pur e alcohol) PHQ-2 Answer Date Recorded PHQ-2 Total Score (If total score is 3 or more points, staff should administer the PHQ-9) 0 05/17/2024 Comments No Sex and Gender Information Value Date Recorded Sex Assigned at Not on file Legal Sex Female 9:21 AM CDT Gender Identity Not on file Sexual Orientation Not on file Last Filed Vital Signs Vital Sign Reading Time Taken Comments Blood Pressure 136/80 11/15/2024 3:04 PM HOTEL OFFICE MANAGER Pulse 76 11/15/2024 3:04 PM HOTEL OFFICE MANAGER Temperature 36.3 C (97.3 F) 11/01/2022 3:19 PM HOTEL OFFICE MANAGER Respiratory Rate 15 11/15/2024 3:04 PM HOTEL OFFICE MANAGER Oxygen Saturation 100% 11/01/2022 3:19 PM HOTEL OFFICE MANAGER Inhaled Oxygen Concentration - - Weight 98 kg (216 lb) 11/15/2024 3:04 PM HOTEL OFFICE MANAGER Height 170.2 cm (5' 7) 11/15/2024 3:04 PM HOTEL OFFICE MANAGER Body Mass Index 33.83 11/15/2024 3:04 PM HOTEL OFFICE MANAGER Plan of Treatment Not on file Procedures Procedure Name Priority Date/Time Associated Diagnosis Comments T3, FREE Routine 03/07/2025 8:10 AM CDT Hyperthyroidism T4, FREE Routine 03/07/2025 8:10 AM CDT Hyperthyroidism TSH Routine 03/07/2025 8:10 AM CDT Hyperthyroidism US THYROID Schedule Routine, Read Routine (OP Routine) 02/28/2025 4:02 PM CDT Multinodular goiter SCREENING MAMMOGRAM BILATERAL W AUGUSTINE Schedule Routine, Read Routine (OP Routine) 11/29/2023 9:23 AM HOTEL OFFICE MANAGER Screening mammogram, encounter for from Last 3 Months or Most Recently Relevant to Health Maintenance Results * T3, free (03/07/2025 8:10 AM CDT) Triiodothyronin e,Free,Serum 2.8 2.0 - 4.4 pg/mL [facility] - Blood 03/07/2025 8:10 AM CDT 03/07/2025 Narrative [facility] - 03/08/2025 4:07 AM CDT Performed at: [address] [id number] Sanding Machine Operator Or Tender: Washington Brooks PhD, Phone: [phone] Issa Mackey MD LAB BLOOD ORDERABLE S Final Result Performing Organization Address [facility] Co de Phone Number [facility] - 01 * TSH (03/07/2025 8:10 AM CDT) TSH 0.750 0.450 - 4.500 uIU/mL [facility] - 01 Blood 03/07/2025 8:10 AM CDT 03/07/2025 Narrative [facility] - 03/08/2025 4:07 AM CDT Performed at: [address] [place] [id number] Sanding Machine Operator Or Tender: Washington Brooks PhD, Phone: [phone] Issa Mackey MD LAB BLOOD ORDERABLE S Final Result Performing Organization Address [facility] de Phone Number [facility] - 01 * T4, free (03/07/2025 8:10 AM CDT) T4,Free(Direct) 1.02 0.82 - 1.77 ng/dL [facility] - 01 Blood 03/07/2025 8:10 AM CDT 03/07/2025 Narrative [facility] - 03/08/2025 4:07 AM CDT Performed at: [address] [id number] Sanding Machine Operator Or Tender: Washington Brooks PhD, Phone: [phone] us Issa Mackey MD LAB BLOOD ORDERABLE S Final Result Performing Organization Address [facility] de Phone Number [facility] - 01 * US Thyroid (02/28/2025 4:02 PM CDT) Anatomical Region Laterality Modality Head and Neck N/A Ultrasound 03/11/2025 8:26 AM CDT Narrative 03/11/2025 8:36 AM CDT EXAM DESCRIPTION: US THYROID REASON FOR STUDY: thyroid nodule TECHNIQUE: Ultrasound of the thyroid was performed with grayscale and color doppler. COMPARISON: Thyroid ultrasound 03/05/2024 FINDINGS: RIGHT: The right thyroid lobe measures 6.0 x 2.3 x 3.1 cm. The right thyroid lobe is heterogenous in echotexture. Mid anterior mixed cystic and solid nodule with isoechoic solid components measuring 1.1 x 0.5 x 0.9 cm. Circumscribed margins. No echogenic foci. TR 2. This previously measured 1.1 x 0.5 x 0.9 cm. Mid posterior predominantly solid, isoechoic nodule measuring 1.7 x 1.5 x 1.8 cm. Peripheral vascularity is noted. Circumscribed margins. No echogenic foci. TR 3. This previously measured 1.7 x 1.3 x 1.7 cm, stable when accounting for differences in technique. Superior mixed cystic and solid nodule with isoechoic solid components measuring 0.9 x 0.4 x 0.8 cm. Circumscribed margins. No echogenic foci. TR 2. This previously measured 1.0 x 0.5 x 0.6 cm. The nodule demonstrates an increased cystic appearance on this exam. LEFT: The left thyroid lobe measures 6.8 x 1.9 x 2.6 cm. The left thyroid lobe is heterogenous in echotexture. The previous left mid thyroid 1 cm nodule is not identified on this exam. No new left thyroid nodules. ISTHMUS: The isthmus measures 0.4 cm in AP dimension. The isthmus is heterogenous in echotexture. VASCULARITY: Normal. OTHER: No other significant finding. IMPRESSION: The previous 1 cm left mid thyroid nodule is not identified. Superior 0.9 cm right thyroid nodule stable in size, with an increased cystic component. TR 2. Stable 1.7 cm right mid thyroid isoechoic solid nodule. TR 3. Stable 1.1 cm mid anterior mixed cystic and solid nodule. TR 2. Follow-up ultrasound in 3 years is recommended, per ACR TI-RADS criteria. ACR TI-RADS Risk Category: 3 REFERENCE: According to the ACR Thyroid Imaging, Reporting and Data System (TI-RADS): White Paper of the ACR TI-RADS Committee Mar, 2017 recommendations regarding the management of thyroid nodules are as follows: 1. TI-RADS 1: Risk of malignancy <2%, no FNA or follow up required. 2. TI-RADS 2: Risk of malignancy <2%, no FNA or follow up required. 3. TI-RADS 3: Risk of malignancy 2%-5%. Nodules 1.5 cm or greater follow up at 1, 3 and 5 years recommended, for nodules 2.5 cm or greater FNA recommended. 4. TI-RADS 4: Risk of malignancy 5%-20% Nodules 1.0 cm or greater follow up at 1, 2, 3 and 5 years recommended, for nodules 1.5 cm or greater FNA recommended 5. TI-RADS 5: Risk of malignancy >20%. Nodules 0.5 cm or greater annual follow up for 5 years recommended, for nodules 1.0 cm or greater FNA recommended. The ACT TI-RADS committee recommends targeting no more than two nodules for FNA. If three or more nodules meet criteria for FNA, the two with the most suspicious appearance based on ACR TI-RADS points should be sampled. THIS IS AN ELECTRONICALLY VERIFIED FINAL REPORT 03/11/2025 8:36 AM - Electronically signed by Frank Palm M.D. KR: KR Report ID: [id number] Reading Location: [place] [address] Procedure Note Frank Palm MD - 03/11/2025 EXAM DESCRIPTION: US THYROID REASON FOR STUDY: thyroid nodule TECHNIQUE: Ultrasound of the thyroid was performed with grayscale andcolor doppler. COMPARISON: Thyroid ultrasound 03/05/2024 FINDINGS: RIGHT: The right thyroid lobe measures 6.0 x 2.3 x 3.1 cm. The right thyroid lobe is heterogenous in echotexture. Mid anterior mixed cystic and solid nodule with isoechoic solid components measuring 1.1 x 0.5 x 0.9 cm. Circumscribed margins. No echogenic foci.TR 2. This previously measured 1.1 x 0.5 x 0.9 cm. Mid posterior predominantly solid, isoechoic nodule measuring 1.7 x 1.5 x1.8 cm. Peripheral vascularity is noted. Circumscribed margins. Noechogenic foci. TR 3. This previously measured 1.7 x 1.3 x 1.7 cm, stable when accounting for differences in technique. Superior mixed cystic and solid nodule with isoechoic solid components measuring 0.9 x 0.4 x 0.8 cm. Circumscribed margins. No echogenic foci.TR 2. This previously measured 1.0 x 0.5 x 0.6 cm. The nodule demonstratesan increased cystic appearance on this exam. LEFT: The left thyroid lobe measures 6.8 x 1.9 x 2.6 cm. The leftthyroid lobe is heterogenous in echotexture. The previous left mid thyroid 1 cm nodule is not identified on this exam. No new left thyroid nodules. ISTHMUS: The isthmus measures 0.4 cm in AP dimension. The isthmus is heterogenous in echotexture. VASCULARITY: Normal. OTHER: No other significant finding. IMPRESSION: The previous 1 cm left mid thyroid nodule is not identified. Superior 0.9 cm right thyroid nodule stable in size, with an increasedcystic component. TR 2. Stable 1.7 cm right mid thyroid isoechoic solid nodule. TR 3. Stable 1.1 cm mid anterior mixed cystic and solid nodule. TR 2. Follow-up ultrasound in 3 years is recommended, per ACR TI-RADS criteria. ACR TI-RADS Risk Category: 3 REFERENCE: According to the ACR Thyroid Imaging, Reporting and Data System (TI-RADS): White Paper of the ACR TI-RADS Committee Mar, 2017recommendations regarding the management of thyroid nodules are as follows: 1. TI-RADS 1: Risk of malignancy <2%, no FNA or follow up required. 2. TI-RADS 2: Risk of malignancy <2%, no FNA or follow up required. 3. TI-RADS 3: Risk of malignancy 2%-5%. Nodules 1.5 cm or greater followup at 1, 3 and 5 years recommended, for nodules 2.5 cm or greater FNArecommended. 4. TI-RADS 4: Risk of malignancy 5%-20% Nodules 1.0 cm or greater followup at 1, 2, 3 and 5 years recommended, for nodules 1.5 cm or greater FNA recommended 5. TI-RADS 5: Risk of malignancy >20%. Nodules 0.5 cm or greater annual follow up for 5 years recommended, for nodules 1.0 cm or greater FNA recommended. The ACT TI-RADS committee recommends targeting no more than two nodulesfor FNA. If three or more nodules meet criteria for FNA, the two with themost suspicious appearance based on ACR TI-RADS points should be sampled. THIS IS AN ELECTRONICALLY VERIFIED FINAL REPORT 03/11/2025 8:36 AM - Electronically signed by Frank Palm M.D. KR: VANESSA Report ID: [id number] Reading Location: [id number] [facility] Narendra Mackey MD IMG US PROCEDURES F inal Result * Screening Mammogram Bilateral W [place] (11/29/2023 9:23 AM HOTEL OFFICE MANAGER) Anatomical Region Laterality Modality Breast Bilateral Mammography 12/01/2023 8:24 AM HOTEL OFFICE MANAGER Impressions 12/01/2023 8:24 AM HOTEL OFFICE MANAGER There is no mammographic evidence of malignancy. A 1 year screening mammogram is recommended. BI-RADS: 1 - Negative. The patient has been or will be contacted. The patient will be entered into a reminder system with a target due date of 1 year for her next mammogram. Electronically signed by: Romi Martini M.D. Narrative 12/01/2023 8:24 AM HOTEL OFFICE MANAGER EXAMINATION: SCREENING MAMMOGRAM BILATERAL W AUGUSTINE ORDERING HEALTHCARE PROVIDER: SELF SCREENING MAMMOGRAM HISTORY: Routine screening mammography. COMPARISON: 06/11/2022 TECHNIQUE: CC and MLO views of the bilateral breasts were obtained with digital technique using breast tomosynthesis with C view. Computer aided detection was utilized. FINDINGS: DENSITY: There are scattered fibroglandular elements in the bilateral breasts. BREASTS: There are no suspicious masses, suspicious calcifications, or other suspicious findings in either breast. There has been no suspicious interval change. us Self Screening Mammogram IMG MAMMO PROCEDURES Fi nal Result from Last 3 Months or Most Recently Relevant to Health Maintenance Insurance [employer] IDND IDND [employer]UE [employer] IDPA Care Teams Examination Supervisor Relationship Specialty Start Date End Date Regan Cortez DO PCP - General Internal Medicine 10/13/23
--- OUTSIDE RECORDS SUMMARY | 2025-04-13 10:39 | XMS_ITS | Encounter Summary ---
Author Organization [facility] Healthcare Address [address] [place] [address] Care Team Providers Care Executive Personal Assistant Name Role Phone Regan Cortez DO Primary Care Provider [phone]- [phone] Encounter Details Date Type Department Care Team (Latest Contact Info) Description 03/08/2025 Results Follow-Up [facility] [id number] [place] [id number] [place] [address] [address] TSH, T4, free, T3, free Social History Tobacco Use Types Packs/Day Years Used Date Smoking Tobacco: Former Cigarettes Vaping Smokeless Tobacco: Never Comments:VAPE Alcohol Use Standard Drinks/Week Comments No [...] on file Sexual Orientation Not on file documented as of this encounter Plan of Treatment Not on file documented as of this encounter Visit Diagnoses Not on filedocumented in this encounter Care Teams Executive Personal Assistant Relationship Specialty Start Date End Date Regan Cortez DO PCP - General Internal Medicine 10/13/23 documented as of this encounter
--- OUTSIDE RECORDS SUMMARY | 2025-04-13 10:39 | XMS_ITS | CONTINUITY OF CARE DOCUMENT ---
Author Name luther sloan Address Unknown Organization [facility] Address [address] [facility] [address] [place] [address] Phone [phone] Care Team Providers Care Bundle Shaker Name Role Phone Arun Rao MD Unavailable Arun Rao MD Unavailable [phone] INSURANCE PROVIDERS Payer name Policy type / Coverage type [place] red green party ID [facility] [id number]
--- OUTSIDE RECORDS SUMMARY | 2025-04-13 10:39 | XMS_ITS | Clinical Summary ---
Author Organization [facility] Address [address] [place] [address] Care Team Providers Care Lodge Officer Name Role Phone Regan Cortez DO Primary Care Provider [phone] Allergies Active Allergy Reactions Criticality Noted Date [...] 02/11/2022 Assessment & Plan (11/16/2024 9:40 AM HEALTH AND WELLNESS DIRECTOR): Chronic, stable Ordered follow-up thyroid ultrasound to follow-up on thyroid nodules No compressive symptoms Assessment & Plan (05/17/2024 10:08 AM CDT): Chronic, stable Reviewed and discussed patient's recent thyroid ultrasound report no compressive symptoms Repeat thyroid ultrasound February 2025 Assessment & Plan (10/23/2023 9:04 AM HEALTH AND WELLNESS DIRECTOR): Detected on Thyroid ultrasound on 01/05/22 Bilateral nodules between 1.2-1.5 cm stable in size on last ultrasound on 11/13/22 She forgot to do thyroid Ultrasound No clinical change Plan: She will get appt with new Van Cdl Driver - Narendra/Jamie Repeat thyroid ultrasound with her new Endo. Assessment & Plan (05/26/2023 8:43 AM CDT): Detected on Thyroid ultrasound on 01/05/22 Bilateral nodules between 1.2-1.5 cm stable in size on last ultrasound on 11/13/22 Plan: Will continue to monitor Repeat thyroid ultrasound before next visit . Assessment & Plan (11/25/2022 8:46 AM HEALTH AND WELLNESS DIRECTOR): Detected on Thyroid ultrasound on 01/05/22 Bilateral [...] 12/04/2021 Assessment & Plan (11/16/2024 9:40 AM HEALTH AND WELLNESS DIRECTOR): History of hyperthyroidism, probably due to Graves [...] months Assessment & Plan (10/23/2023 9:06 AM HEALTH AND WELLNESS DIRECTOR): Chronic for few years- did not require [...] needed. Assessment & Plan (11/25/2022 8:46 AM HEALTH AND WELLNESS DIRECTOR): Chronic for few years- did not require [...] needed. Assessment & Plan (12/04/2021 3:25 PM HEALTH AND WELLNESS DIRECTOR): Chronic for few years- did not require [...] decided after we obtain above test results. Encounters Date Type Department Care Team Description 03/11/2025 Results Follow-Up [facility] [address] [address] Issa Talbert MD US Thyroid 03/08/2025 Results Follow-Up [facility] [address] [address] Issa Talbert MD TSH, T4, free, T3, free 02/28/2025 3:05 PM CDT - 02/28/2025 11:59 PM CDT Hospital Encounter [facility] [address] [place] [address] Multinodular goiter Discharge Disposition: Discharge to home or self care from Last 3 Months Surgical History Surgery Date Site/Laterality Comments TONSILECTOMY, ADENOIDECTOMY, BILATERAL MYRINGOTOMY AND TUBES DILATION AND CURETTAGE OF UTERUS BREAST BIOPSY BREAST LUMPECTOMY Medical History Medical History Date Comments Diabetes mellitus (HCC) Abnormal Pap smear of cervix Fibrocystic breast Breast mass Uterine prolapse Gestational diabetes Hyperthyroidism Family History Medical History Relation Name Comments Alcohol abuse Maternal Grandfather Rom Diabetes Mother Cynthia Heart disease Mother Cynthia Hypertension Mother Cynthia Alcohol abuse Sister Donna Relation Name Status Comments Maternal Grandfather Rom Mother Cynthia Sister Donna Social History Tobacco Use Types Packs/Day Years [...] on file Sexual Orientation Not on file Obstetrics History Para Term AB IAB SAB Ectopic Multiple Livin g Live Births 3 3 3 3 3 Date Outcome GA Total Labor Labor/2nd/3rd Weight Sex Type Anes PTL Keshia A1 A5 Name Clin Term Vaginal Living Term Vaginal Living Term Vaginal Living Last Filed Vital Signs Vital Sign Reading Time Taken Comments Blood Pressure 136/80 11/15/2024 3:04 PM HEALTH AND WELLNESS DIRECTOR Pulse 76 11/15/2024 3:04 PM HEALTH AND WELLNESS DIRECTOR Temperature 36.3 C (97.3 F) 11/01/2022 3:19 PM HEALTH AND WELLNESS DIRECTOR Respiratory Rate 15 11/15/2024 3:04 PM HEALTH AND WELLNESS DIRECTOR Oxygen Saturation 100% 11/01/2022 3:19 PM HEALTH AND WELLNESS DIRECTOR Inhaled Oxygen Concentration - - Weight 98 kg (216 lb) 11/15/2024 3:04 PM HEALTH AND WELLNESS DIRECTOR Height 170.2 cm (5' 7) 11/15/2024 3:04 PM HEALTH AND WELLNESS DIRECTOR Body Mass Index 33.83 11/15/2024 3:04 PM HEALTH AND WELLNESS DIRECTOR Plan of Treatment Health Maintenance Due Date Last Done Comments Cervical Cancer Screening 1980 Hepatitis C Screening 1980 DTaP/Tdap/Td Vaccine (1 - Tdap) 1991 Varicella Vaccines (1 of 2 - 13+ 2-dose series) 1993 Regular Well Visit/Exam 18-64 1998 Covid-19 Vaccine (2 - season) 2024 09/22/2021 Breast Cancer Screening-Mammogram 11/29/2024 11/29/2023, 06/11/2022 Depression Screening 05/17/2025 05/17/2024 Influenza Vaccine (Season Ended) 2025 10/10/2020, 09/22/2014, 08/08/2009, Additional history exists Hepatitis B Screening Completed 02/09/2008 , 10/14/2007, 08/07/2007 HPV Vaccines Aged Out No longer eligi ble based on patient's age to complete this topic Pneumococcal vaccine <65 Aged Out No longer eligible based on patient's age to complete this topic Procedures Procedure Name Priority Date/Time Associated Diagnosis Comments T3, FREE Routine 03/07/2025 8:10 AM CDT Hyperthyroidism T4, FREE Routine 03/07/2025 8:10 AM CDT Hyperthyroidism TSH Routine 03/07/2025 8:10 AM CDT Hyperthyroidism THYROID Schedule Routine, Read Routine (OP Routine) 02/28/2025 4:02 PM CDT Multinodular goiter SCREENING MAMMOGRAM BILATERAL W AUGUSTINE Schedule Routine, Read Routine (OP Routine) 11/29/2023 9:23 AM HEALTH AND WELLNESS DIRECTOR Screening mammogram, encounter for from Last 3 Months or Most Recently Relevant to Health Maintenance Results * T3, free (03/07/2025 8:10 AM CDT) Triiodothyronin e,Free,Serum 2.8 2.0 - 4.4 pg/mL [facility] - 01 Blood 03/07/2025 8:10 AM CDT 03/07/2025 Narrative [facility] - 03/08/2025 4:07 AM CDT Performed at: 01 - [facility] [address], [place], [place] [id number] Biophysics Teacher: Washington Brooks PhD, Phone: [phone] us Issa Mackey MD LAB BLOOD ORDERABLE S Final Result [facility] - 01 * TSH (03/07/2025 8:10 AM CDT) TSH 0.750 0.450 - 4.500 uIU/mL [facility] - 01 Blood 03/07/2025 8:10 AM CDT 03/07/2025 Narrative [facility] - 03/08/2025 4:07 AM CDT Performed at: [address] [place] [id number] Biophysics Teacher: Washington Brooks PhD, Phone: [phone] Issa Mackey MD LAB BLOOD ORDERABLE S Final Result Performing Organization Address [facility] Co de Phone Number [facility] - * T4, free (03/07/2025 8:10 AM CDT) Pathologist [facility] T4,Free(Direct) 1.02 0.82 - 1.77 ng/dL [facility] - 01 Blood 03/07/2025 8:10 AM CDT 03/07/2025 Narrative [facility] - 03/08/2025 4:07 AM CDT Performed at: [address] [place] [id number] Biophysics Teacher: Washington Brooks PhD, Phone: [phone] Issa Mackey MD LAB BLOOD ORDERABLE S Final Result Performing Organization Address [facility] Co de Phone Number [facility] - * US Thyroid (02/28/2025 4:02 PM CDT) [...] Frank Palm M.D. KR: VANESSA Report ID: [id number] Reading Location: [place] [address] Procedure Note Frank Palm MD - 03/11/2025 [...] Frank Palm M.D. KR: KR Report ID: [id number] Reading Location: [id number] Issa Mackey MD IMG US PROCEDURES F inal Result * Screening Mammogram Bilateral W [place] (11/29/2023 9:23 AM HEALTH AND WELLNESS DIRECTOR) Anatomical Region Laterality Modality Breast Bilateral Mammography 12/01/2023 8:24 AM HEALTH AND WELLNESS DIRECTOR Impressions 12/01/2023 8:24 AM HEALTH AND WELLNESS DIRECTOR There is no mammographic evidence of malignancy. A 1 year screening mammogram is recommended. BI-RADS: 1 - Negative. The patient has been or will be contacted. The patient will be entered into a reminder system with a target due date of 1 year for her next mammogram. Electronically signed by: Romi Martini M.D. Narrative 12/01/2023 8:24 AM HEALTH AND WELLNESS DIRECTOR EXAMINATION: SCREENING MAMMOGRAM BILATERAL W AUGUSTINE ORDERING [...] There has been no suspicious interval change. Self Screening Mammogram IMG MAMMO PROCEDURES Fi nal Result from Last 3 Months or Most Recently Relevant to Health Maintenance Insurance [facility] ID[place] BLUE [employer] [place] Care Teams Lodge Officer Relationship Specialty Start Date End Date Regan Cortez DO PCP - General Internal Medicine 10/13/23
--- OUTSIDE RECORDS SUMMARY | 2025-04-13 10:39 | XMS_ITS | Clinical Summary ---
Author Organization [facility] Address [address] [place] [address] Care Team Providers Care Film Cleaner Name Role Phone Elvin Heredia MD Primary Care Provider [phone] Source Comments [facility] Affiliates and Associated Physician Practices is amultiple site organization consisting of ambulatory clinics and hospital sitesin [place], [place], [place]. This disclosure is being madepursuant to the Care Everywhere program and may not contain all information available regarding this patient. Last updated 18.[facility] Allergies Active Allergy Reactions Criticality Noted Date Comments Tramadol 05/31/2011 Severe itching (no rash) Medications * Be aware that medications may not be up to date on this document. Alwaysverify current medications with the patient. meclizine (ANTIVERT) 25 MG tabletIndicatio ns:Motion Sickness Take 25 mg by mouth 3 times daily as needed. Indications: Motion Sickness Active methocarbamol (ROBAXIN) 750 MG tablet Take 1 Tab by mouth every 6 hours as needed for Muscle Spasms. 40 Tab 1 4 Active diclofenac sodium EC (VOLTAREN) 75 MG tablet Take 1 tablet by mouth 2 times daily. 60 tablet 1 4 Active amitriptyline (ELAVIL) 25 MG tablet Take 1 at bedtime x 7 days then increase to 2 pill as directed if tolerated 60 tablet 1 4 Active hydrocodone-dontae taminophen (NORCO) 5-325 MG tablet 1 TAB PO q 6 hours prn pain 40 Tab 0 4 Active Active Problems Problem Noted Date Diagnosed Date Follow-up examination, following other surgery 0 08/12/2011 Displacement of lumbar inter vertebral disc without myelopathy 05/14/2011 Thoracic or lumbosacral neur itis or radiculitis, unspecified 05/14/2011 Social History Tobacco Use Types Packs/Day Years Used Date Smoking Tobacco: Every Day Cigarettes Smokeless Tobacco: Never Tobacco Cessation:Ready to Q uit: Yes; Counseling Given: Yes Alcohol Use Standard Drinks/Week Comments No 0 (1 standard drink = 0.6 oz pur e alcohol) Comments No Sex and Gender Information Value Date Recorded Sex Assigned at Not on file Legal Sex Female 11:56 AM HOUSEKEEPING STAFF Gender Identity Not on file Sexual Orientation Not on file 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 Not on file Not on file Last Filed Vital Signs Vital Sign Reading Time Taken Comments Blood Pressure 110/62 04/21/2014 6:13 PM CDT Pulse 73 04/21/2014 6:13 PM CDT Temperature 37.1 C (98.7 F) 04/21/2014 6:13 PM CDT Respiratory Rate 18 04/21/2014 6:13 PM CDT Oxygen Saturation 94% 04/21/2014 6:13 PM CDT Inhaled Oxygen Concentration - - Weight 99.8 kg (220 lb) 05/11/2014 11:11 AM CDT Height 170.2 cm (5' 7) 05/11/2014 11:11 AM CDT Body Mass Index 34.46 05/11/2014 11:11 AM CDT Plan of Treatment Health Maintenance Due Date Last Done Comments LIPID TESTING 1980 MAMMOGRAM 1980 HIV SCREENING 1995 HEPATITIS C SCREENING 11/26/1998 DTAP/TDAP/TD VACCINES (1 - Tdap) 1999 HEPATITIS B VACCINE (1 of 3 - 19+ 3-dose series) 1999 COVID-19 VACCINE ( - 2023-2 5 season) 2024 DEPRESSION SCREENING 11/17/2024 INFLUENZA VACCINE (Season Ended) 2025 ZOSTER VACCINE (1 of 2) 2030 HIB VACCINE Aged Out No longer eligi ble based on patient's age to complete this topic HPV VACCINE Aged Out No longer eligi ble based on patient's age to complete this topic MENINGOCOCCAL (Group B) VACC INE SHARED DECISION-MAKING Aged Out No longer eligibl e based on patient's age to complete this topic MENINGOCOCCAL GROUPS A/C/Y/W VACCINE Aged Out No longer eligible b ased on patient's age to complete this topic PNEUMOCOCCAL VACCINE Aged Out No long er eligible based on patient's age to complete this topic Insurance MEDICAID - [place] Advance Directives * Full Code (Latest Code Status on File) Date Activated Date Inactivated Comments 04/21/2014 4:23 PM 04/21/2014 9:40 PM * FULL RESUSCITATION Date Activated Date Inactivated Comments 08/01/2011 12:23 PM 08/02/2011 6:11 AM Care Teams Film Cleaner Relationship Specialty Start Date End Date Elvin Heredia MD [address] [place] [address] [address] [place] [id number] PCP - General Internal Medicine 03/25/14
--- OUTSIDE RECORDS SUMMARY | 2025-04-13 10:39 | XMS_ITS | Clinical Summary ---
Author Organization [facility] Address [address] [place] [address] Phone Care Team Providers Care Car Shagger Name Role Phone Elvin Heredia MD Primary Care Provider [phone] Social History Tobacco Use Types Packs/Day Years Used Date Smoking Tobacco: Never Assessed Comments Unknown Sex and Gender Information Value Date Recorded Sex Assigned at Not on file Legal Sex Female 2:42 PM SIGNAL TIMER Gender Identity Not on file Sexual Orientation Not on file Plan of Treatment Health Maintenance Due Date Last Done Comments Hepatitis C Virus (HCV) Screening 1980 TdaP Immunization 1980 Hepatitis B Immunization (1 of 3 - 19+ 3-dose series) 1999 Pap Smear 2001 Cervical Cancer Screening (CCS) 2010 HPV/Cotest 2010 Discussion re Starting/Frequ ency of Mammograms 2020 Influenza Immunization (#1) 2024 SARS-COV-2 Immunization ( season) 2024 Respiratory Syncytial Virus (RSV) Immunization (Adult) (1 - 1-dose 75+ series) 2055 Meningococcal Immunization (ACWY) Aged Out No longer eligible based on patient's age to complete this topic Pneumococcal Immunization Combined Aged Out No longer eligible based on patient's age to complete this topic Rotavirus Immunization Aged Out No lo nger eligible based on patient's age to complete this topic Insurance MEDICAID [place] Care Teams Car Shagger Relationship Specialty Start Date End Date Elvin Heredia MD PCP - General Internal Medicine 12/29/17
--- OUTSIDE RECORDS SUMMARY | 2025-04-13 10:48 | XMS_ITS | Continuity of Care Document ---
Author Organization [facility] Address [address] [place] [address] [place] [address] Phone Care Team Providers Care Instructor Ground Services Name Role Phone Marlen Gay Unavailable Unavailable Procedures Procedure Date Office/outpatient Visit, [facility] Office/outpatient Visit, New Advance Directives Directive Yes / No Effective Date File Name No Information Encounters Encounter Description Practice Location Reason(s) For Visit Diagnoses Date Provider Providers Copied on Encounter Office/outpat ient Visit, [facility], [address] [place] [address] [address], [place], [place], [id number], tel:[phone] [facility] [place] No Information 1-[address] Deidra Gee. [facility] [address] [facility] , [address], [place], [address], [place]. tel:[phone] Office/outpat ient Visit, [facility], [address] [place] [address] [address], [place], [place], [id number], tel:[phone] [facility] [place] No Information 6-200 7 Gagnon OD Tom. [address] , [address], [place], [address], [place]. tel:[phone] Family History Family Member Type Diagnosis Age At Onset No Information Payers Payer name Insurance type Covered republican ID Authoriza tion(s) Medicaid [facility] [id number] Social History Type Description Quantity Date Captured Comments Sex Female Smoking Status No Information Chief Complaint And Reason For Visit No Information Reason For Referral Reason For Referral No Information History Of Present Illness Encounter Date Complaint History Of Prese nt Illness No Information Functional Status Date Functional Assessmen t No Information Instructions Date Instruction Additional Infor mation No Information Assessments Type Assessment Date No Information Patient Care Teams Name Effective Dates (start - stop) Status Members No Information
--- OUTSIDE RECORDS SUMMARY | 2025-04-13 10:48 | XMS_ITS | CONTINUITY OF CARE DOCUMENT ---
Author Name luther sloan Address Unknown Organization [facility] Address [address] [place] [address] Phone [phone] Care Team Providers Care Automotive Fuel Injection Servicer Name Role Phone Arun Rao MD Unavailable Arun Rao MD Unavailable [phone] INSURANCE PROVIDERS Payer name Policy type / Coverage type [place] red [employer] party ID [facility] [id number]
[2025-04-13 10:59] LABS: Estimated Glomerular Filt Rate > 60
[2025-04-13 11:47] LABS: Amylase 72 U/L (30-110); Lipase 153 U/L (23-300)
[2025-04-13 11:49] LABS: Add Urine Microscopic? YES; Appearance Urine Clear (Clear); Bacteria Urine None Seen /hpf; Bilirubin Urine Negative (Negative); Blood Urine Negative (Negative); Color Urine Yellow (Yellow); Glucose Urine UA Negative (Negative); Ketones Urine Negative (Negative); Leukocyte Esterase Ur Negative LEU/UL (Negative); Nitrate Urine Negative (Negative); Non Pathogenic Casts 0-2; Protein Urine Trace mg/dL (Negative); RBC Urine 0-2 /hpf (0-2); Specific Grav Ur 1.026 (1.001-1.035); Squamous Epithelial Cell Urine None Seen /hpf (Few); Urobilinogen Urine 0.2 mg/dL (<2.0); WBC Urine 0-5 /hpf (0-3); pH Urine 7.5 (5.0-9.0)
--- OUTSIDE RECORDS SUMMARY | 2025-04-13 12:39 | XMS_ITS | Clinical Summary ---
Author Organization [facility] Address [address] [place] [address] Care Team Providers Care Affiliate Marketing Coordinator Name Role Phone Elvin Heredia MD Primary Care Provider Source Comments [facility] Affiliates and Associated Physician Practices is amultiple site organization consisting of ambulatory clinics and hospital sitesin [place], [place], [place] and [place]. This disclosure is being madepursuant to the Care Everywhere program and may not contain all information available regarding this patient. 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
--- OUTSIDE RECORDS SUMMARY | 2025-04-13 12:39 | XMS_ITS | Continuity of Care Document ---
Author Organization [facility] Address [address] [place] [address] [place] [address] Phone Care Team Providers Care Administrative Associate Name Role Phone Marlen Gay Unavailable Unavailable Procedures Procedure Date Office/outpatient Visit, [facility] Office/outpatient Visit, New Advance Directives Directive Yes / No Effective Date File Name No Information Encounters Encounter Description Practice Location Reason(s) For Visit Diagnoses Date Provider Providers Copied on Encounter Office/outpat ient Visit, [facility], [address] [place] [address] [address], [place], [place], [id number], tel:[phone] [facility] [place] No Information 1-[address] Deidra Gee. [facility] , [address], [place], [address], [place]. tel:[phone] Office/outpat ient Visit, [facility], [address] [place] [address] [address], [place], [place], [id number], tel:[phone] [facility] [place] No Information 6-200 7 Gagnon OD Tom. [address] , [address], [place], [address], [place]. tel:[phone] Family History Family Member Type Diagnosis Age At Onset No Information Payers Payer name Insurance type Covered republican ID Authoriza tion(s) Medicaid [facility] [id number] Social History Type Description Quantity Date Captured [...]
--- OUTSIDE RECORDS SUMMARY | 2025-04-13 12:39 | XMS_ITS | Referral Summary ---
Author Organization [facility] Address [address] [place] [address] Care Team Providers Care Railroad Brake Operator Name Role Phone Regan Cortez DO Primary Care Provider [phone]- [phone] Encounters Date Type Department Care Team Description 03/11/2025 Results Follow-Up [facility] [address] [address] Issa Talbert MD US Thyroid 03/08/2025 Results Follow-Up [facility] [address] [address] Issa Talbert MD TSH, T4, free, T3, free 02/28/2025 3:05 PM CDT - 02/28/2025 11:59 PM CDT Hospital Encounter [facility] [address] [place] [address] Multinodular goiter Discharge Disposition: Discharge to home [...] 02/11/2022 Assessment & Plan (11/16/2024 9:40 AM SEAM RUBBER): Chronic, stable Ordered follow-up thyroid ultrasound to follow-up on thyroid nodules No compressive symptoms Assessment & Plan (05/17/2024 10:08 AM CDT): Chronic, stable Reviewed and discussed patient's recent thyroid ultrasound report no compressive symptoms Repeat thyroid ultrasound February 2025 Assessment & Plan (10/23/2023 9:04 AM SEAM RUBBER): Detected on Thyroid ultrasound on 01/05/22 Bilateral nodules between 1.2-1.5 cm stable in size on last ultrasound on 11/13/22 She forgot to do thyroid Ultrasound No clinical change Plan: She will get appt with new Store Administrator Zaire Mackey/Jamie Repeat thyroid ultrasound with her new Endo. Assessment & Plan (05/26/2023 8:43 AM CDT): Detected on Thyroid ultrasound on 01/05/22 Bilateral nodules between 1.2-1.5 cm stable in size on last ultrasound on 11/13/22 Plan: Will continue to monitor Repeat thyroid ultrasound before next visit . Assessment & Plan (11/25/2022 8:46 AM SEAM RUBBER): Detected on Thyroid ultrasound on 01/05/22 Bilateral [...] 12/04/2021 Assessment & Plan (11/16/2024 9:40 AM SEAM RUBBER): History of hyperthyroidism, probably due to Graves [...] months Assessment & Plan (10/23/2023 9:06 AM SEAM RUBBER): Chronic for few years- did not require [...] needed. Assessment & Plan (11/25/2022 8:46 AM SEAM RUBBER): Chronic for few years- did not require [...] needed. Assessment & Plan (12/04/2021 3:25 PM SEAM RUBBER): Chronic for few years- did not require [...] Comments Blood Pressure 136/80 11/15/2024 3:04 PM SEAM RUBBER Pulse 76 11/15/2024 3:04 PM SEAM RUBBER Temperature 36.3 C (97.3 F) 11/01/2022 3:19 PM SEAM RUBBER Respiratory Rate 15 11/15/2024 3:04 PM SEAM RUBBER Oxygen Saturation 100% 11/01/2022 3:19 PM SEAM RUBBER Inhaled Oxygen Concentration - - Weight 98 kg (216 lb) 11/15/2024 3:04 PM SEAM RUBBER Height 170.2 cm (5' 7) 11/15/2024 3:04 PM SEAM RUBBER Body Mass Index 33.83 11/15/2024 3:04 PM SEAM RUBBER Plan of Treatment Not on file Procedures [...] Read Routine (OP Routine) 11/29/2023 9:23 AM SEAM RUBBER Screening mammogram, encounter for from Last 3 Months or Most Recently Relevant to Health Maintenance Results * T3, free (03/07/2025 8:10 AM CDT) Triiodothyronin e,Free,Serum 2.8 2.0 - 4.4 pg/mL [facility] - Blood 03/07/2025 8:10 AM CDT 03/07/2025 Narrative [facility] - 03/08/2025 4:07 AM CDT Performed at: [address] [id number] Palliative Care Physician: Washington Brooks PhD, Phone: [phone] Issa Mackey MD LAB BLOOD ORDERABLE S Final Result Performing Organization Address [facility] Co de Phone Number [facility] - 01 * TSH (03/07/2025 8:10 AM CDT) TSH 0.750 0.450 - 4.500 uIU/mL [facility] - 01 Blood 03/07/2025 8:10 AM CDT 03/07/2025 Narrative [facility] - 03/08/2025 4:07 AM CDT Performed at: [address] [place] [id number] Palliative Care Physician: Washington Brooks PhD, Phone: [phone] Issa Mackey MD LAB BLOOD ORDERABLE S Final Result Performing Organization Address [facility] de Phone Number [facility] - 01 * T4, free (03/07/2025 8:10 AM CDT) T4,Free(Direct) 1.02 0.82 - 1.77 ng/dL [facility] - 01 Blood 03/07/2025 8:10 AM CDT 03/07/2025 Narrative [facility] - 03/08/2025 4:07 AM CDT Performed at: [address] [id number] Palliative Care Physician: Washington Brooks PhD, Phone: [phone] us Issa Mackey MD LAB BLOOD ORDERABLE S Final Result Performing Organization Address [facility] de Phone Number [facility] - 01 * US Thyroid [...] Frank Palm M.D. KR: KR Report ID: [id number] Reading Location: [place] [address] Procedure Note Frank Palm MD - 03/11/2025 [...] Frank Palm M.D. KR: VANESSA Report ID: [id number] Reading Location: [id number] us [facility] Narendra Mackey MD IMG US PROCEDURES F inal Result * Screening Mammogram Bilateral W Augustine (11/29/2023 9:23 AM SEAM RUBBER) Anatomical Region Laterality Modality Breast Bilateral Mammography 12/01/2023 8:24 AM SEAM RUBBER Impressions 12/01/2023 8:24 AM SEAM RUBBER There is no mammographic evidence of malignancy. A 1 year screening mammogram is recommended. BI-RADS: 1 - Negative. The patient has been or will be contacted. The patient will be entered into a reminder system with a target due date of 1 year for her next mammogram. Electronically signed by: Romi Martini M.D. Narrative 12/01/2023 8:24 AM SEAM RUBBER EXAMINATION: SCREENING MAMMOGRAM BILATERAL W AUGUSTINE ORDERING [...] Recently Relevant to Health Maintenance Insurance [place]UE [employer] [place] [employer] [place] Care Teams Railroad Brake Operator Relationship Specialty Start Date End Date Regan Cortez DO PCP - General Internal Medicine 10/13/23
--- OUTSIDE RECORDS SUMMARY | 2025-04-13 12:39 | XMS_ITS | CONTINUITY OF CARE DOCUMENT ---
Author Name luther sloan Address Unknown Organization [facility] Address [address] [place] [address] Phone [phone] Care Team Providers Care Civil Engineering Manager Name Role Phone Arun Rao MD Unavailable Arun Rao MD Unavailable [phone] INSURANCE PROVIDERS Payer name Policy type / Coverage type Rozel red green party ID [facility] [id number]
--- OUTSIDE RECORDS SUMMARY | 2025-04-13 12:39 | XMS_ITS | Clinical Summary ---
Author Organization [facility] Address [address] [place] [address] Care Team Providers Care Ruffler Name Role Phone Regan Cortez DO Primary Care Provider [phone]- [phone] Allergies Active Allergy Reactions Criticality Noted Date [...] 02/11/2022 Assessment & Plan (11/16/2024 9:40 AM ELECTRIC MOTOR TESTER): Chronic, stable Ordered follow-up thyroid ultrasound to follow-up on thyroid nodules No compressive symptoms Assessment & Plan (05/17/2024 10:08 AM CDT): Chronic, stable Reviewed and discussed patient's recent thyroid ultrasound report no compressive symptoms Repeat thyroid ultrasound February 2025 Assessment & Plan (10/23/2023 9:04 AM ELECTRIC MOTOR TESTER): Detected on Thyroid ultrasound on 01/05/22 Bilateral nodules between 1.2-1.5 cm stable in size on last ultrasound on 11/13/22 She forgot to do thyroid Ultrasound No clinical change Plan: She will get appt with new Commercial Fishing Vessel Operator - Narendra/Jamie Repeat thyroid ultrasound with her new Endo. Assessment & Plan (05/26/2023 8:43 AM CDT): Detected on Thyroid ultrasound on 01/05/22 Bilateral nodules between 1.2-1.5 cm stable in size on last ultrasound on 11/13/22 Plan: Will continue to monitor Repeat thyroid ultrasound before next visit . Assessment & Plan (11/25/2022 8:46 AM ELECTRIC MOTOR TESTER): Detected on Thyroid ultrasound on 01/05/22 Bilateral [...] 12/04/2021 Assessment & Plan (11/16/2024 9:40 AM ELECTRIC MOTOR TESTER): History of hyperthyroidism, probably due to Graves [...] months Assessment & Plan (10/23/2023 9:06 AM ELECTRIC MOTOR TESTER): Chronic for few years- did not require [...] needed. Assessment & Plan (11/25/2022 8:46 AM ELECTRIC MOTOR TESTER): Chronic for few years- did not require [...] needed. Assessment & Plan (12/04/2021 3:25 PM ELECTRIC MOTOR TESTER): Chronic for few years- did not require [...] Description 03/11/2025 Results Follow-Up [facility] [address] [address] Issa Talbert MD US Thyroid 03/08/2025 Results Follow-Up [facility] [address] [address] Issa Talbert MD TSH, T4, free, T3, free 02/28/2025 3:05 PM CDT - 02/28/2025 11:59 PM CDT Hospital Encounter [facility] [address] [place] [address] Multinodular goiter Discharge Disposition: Discharge to home [...] Comments Blood Pressure 136/80 11/15/2024 3:04 PM ELECTRIC MOTOR TESTER Pulse 76 11/15/2024 3:04 PM ELECTRIC MOTOR TESTER Temperature 36.3 C (97.3 F) 11/01/2022 3:19 PM ELECTRIC MOTOR TESTER Respiratory Rate 15 11/15/2024 3:04 PM ELECTRIC MOTOR TESTER Oxygen Saturation 100% 11/01/2022 3:19 PM ELECTRIC MOTOR TESTER Inhaled Oxygen Concentration - - Weight 98 kg (216 lb) 11/15/2024 3:04 PM ELECTRIC MOTOR TESTER Height 170.2 cm (5' 7) 11/15/2024 3:04 PM ELECTRIC MOTOR TESTER Body Mass Index 33.83 11/15/2024 3:04 PM ELECTRIC MOTOR TESTER Plan of Treatment Health Maintenance Due Date [...] Read Routine (OP Routine) 11/29/2023 9:23 AM ELECTRIC MOTOR TESTER Screening mammogram, encounter for from Last 3 Months or Most Recently Relevant to Health Maintenance Results * T3, free (03/07/2025 8:10 AM CDT) Triiodothyronin e,Free,Serum 2.8 2.0 - 4.4 pg/mL [facility] - 01 Blood 03/07/2025 8:10 AM CDT 03/07/2025 Narrative [facility] - 03/08/2025 4:07 AM CDT Performed at: 01 - [facility] [address], [place], [place] [id number] Pulley Worker: Washington Brooks PhD, Phone: [phone] us Issa Mackey MD LAB BLOOD ORDERABLE S Final Result [facility] - 01 * TSH (03/07/2025 8:10 AM CDT) TSH 0.750 0.450 - 4.500 uIU/mL [facility] - 01 Blood 03/07/2025 8:10 AM CDT 03/07/2025 Narrative [facility] - 03/08/2025 4:07 AM CDT Performed at: [address] [place] [id number] Pulley Worker: Washington Brooks PhD, Phone: [phone] Issa Mackey MD LAB BLOOD ORDERABLE S Final Result Performing Organization Address [facility] Co de Phone Number [facility] - * T4, free (03/07/2025 8:10 AM CDT) Pathologist [facility] T4,Free(Direct) 1.02 0.82 - 1.77 ng/dL [facility] - 01 Blood 03/07/2025 8:10 AM CDT 03/07/2025 Narrative [facility] - 03/08/2025 4:07 AM CDT Performed at: [address] [place] [id number] Pulley Worker: Washington Brooks PhD, Phone: [phone] Issa Mackey MD LAB BLOOD ORDERABLE S Final Result Performing Organization Address [facility] Co de Phone Number [facility] [...] Frank Palm M.D. KR: VANESSA Report ID: [id number] Reading Location: [place] [address] Procedure Note Frank Palm MD - 03/11/2025 [...] Frank Palm M.D. KR: KR Report ID: [id number] Reading Location: [id number] Issa Mackey MD IMG US PROCEDURES F inal Result * Screening Mammogram Bilateral W Augustine (11/29/2023 9:23 AM ELECTRIC MOTOR TESTER) Anatomical Region Laterality Modality Breast Bilateral Mammography 12/01/2023 8:24 AM ELECTRIC MOTOR TESTER Impressions 12/01/2023 8:24 AM ELECTRIC MOTOR TESTER There is no mammographic evidence of malignancy. A 1 year screening mammogram is recommended. BI-RADS: 1 - Negative. The patient has been or will be contacted. The patient will be entered into a reminder system with a target due date of 1 year for her next mammogram. Electronically signed by: Romi Martini M.D. Narrative 12/01/2023 8:24 AM ELECTRIC MOTOR TESTER EXAMINATION: SCREENING MAMMOGRAM BILATERAL W AUGUSTINE ORDERING [...] Most Recently Relevant to Health Maintenance Insurance [facility] IDPA IDOR BLUE [place] Care Teams Ruffler Relationship Specialty Start Date End Date Regan Cortez DO PCP - General Internal Medicine 10/13/23
--- OUTSIDE RECORDS SUMMARY | 2025-04-13 12:39 | XMS_ITS | Encounter Summary ---
Author Organization [facility] Address [address] [place] [address] Care Team Providers Care Printer Operator Name Role Phone Regan Cortez DO Primary Care Provider [phone]- [phone] Encounter Details Date Type Department Care Team (Latest Contact Info) Description 03/08/2025 Results Follow-Up [facility] [id number] [place] [address] [place] [address] [address] TSH, T4, free, T3, free [...] on filedocumented in this encounter Care Teams Printer Operator Relationship Specialty Start Date End Date Regan Cortez DO PCP - General Internal Medicine 10/13/23 documented as of this encounter
--- OUTSIDE RECORDS SUMMARY | 2025-04-13 12:40 | XMS_ITS | Clinical Summary ---
Author Organization [facility] Address [address] [place] [address] Phone Care Team Providers Care Gang Plank Workman Name Role Phone Elvin Heredia MD Primary Care Provider [phone] Social History Tobacco Use Types Packs/Day Years Used Date Smoking Tobacco: Never Assessed Comments Unknown Sex and Gender Information Value Date Recorded Sex Assigned at Not on file Legal Sex Female 2:42 PM SOCIAL SCIENCE PROFESSOR Gender Identity Not on file Sexual Orientation [...] age to complete this topic Insurance [place] Care Teams Gang Plank Workman Relationship Specialty Start Date End Date Elvin Heredia MD PCP - General Internal Medicine 12/29/17
[2025-04-13 13:05] LABS: Basophils Percent Auto 0.3 % (0.2-1.2); Eosinophils Absolute Auto 0.1 K/mm3 (0-0.3); Eosinophils Percent Auto 1.1 % (0-4.4); Hematocrit 39.6 % (37.0-47.0); Hemoglobin 13.2 g/dL (12.0-15.0); Immature Granulocyte Absolute 0.03 K/mm3 (0.00-0.031); Immature Granulocyte Percent A 0.3 % (0-0.5); Lymphocytes Absolute Auto 1.46 K/mm3 (0.9-3.2); Lymphocytes Percent Auto 14.1 % (18.3-44.2); Mean Corpuscular HGB Conc 33.3 g/dl (32-36); Mean Platelet Volume 8.3 fl (7.4-10.4); Monocytes Absolute Auto 0.4 K/mm3 (0.1-0.6); Monocytes Percent Auto 3.8 % (2.6-8.5); Neutrophils Absolute Auto 8.4 K/mm3 (1.3-6.7); Neutrophils Percent Auto 80.4 % (45.5-73.1); Platelet Count Result 308 k/mm3 (150-375); Red Cell Distribution Width 12.6 % (11.5-14.5); White Blood Count 10.4 K/mm3 (4.5-10.0)
[2025-04-13 13:14] LABS: Hemoglobin A1C 6.5 % (<5.7)
[2025-04-13 13:19] LABS: Cholesterol 241 mg/dL (0-200); HDL Direct 40 mg/dL; Triglycerides 270 mg/dL (<150)
[2025-04-13 13:20] LABS: Alanine Aminotransferase 54 U/L (6-35); Albumin Level 4.8 g/dL (3.5-5.1); Alkaline Phosphatase 45 U/L (38-126); Anion Gap 12 mmol/L (4-12); Aspartate Amino Transferase 51 U/L (14-36); Bilirubin,Total 0.6 mg/dL (0.2-1.3); Blood Urea Nitrogen 10 mg/dL (7-17); Calcium 9.5 mg/dL (8.4-10.2); Carbon Dioxide 21 mmol/L (22-30); Chloride 103 mmol/L (98-107); Estimated Glomerular Filt Rate > 60; Glucose 116 mg/dL (65-110); Potassium 4.7 mmol/L (3.4-5.0); Sodium 136 mmol/L (137-145)
[2025-04-13 13:30] LABS: LDL Cholesterol Direct 141 mg/dL
[2025-04-13 13:36] LABS: Vitamin D 25 Hydroxy 39.4 ng/mL
[2025-04-13 13:39] LABS: Creatinine Urine 47.3 mg/dL
[2025-04-13 14:02] LABS: MALB Creatinine Ratio 31.5 mg/g (0-30); Microalbumin Urine Random 14.9 mg/L (0-16.7)
== END 2025-04-13 12:37 | disposition home or self-care (01) ==
PROVIDERS: PCP Internal Medicine; Visit Provider Clinical Nurse Specialist
DX: N83.11 Corpus luteum cyst of right ovary (principal); K57.90 Diverticulosis of intestine, part unspecified, without perforation or abscess without bleeding; E11.9 Type 2 diabetes mellitus without complications; E05.90 Thyrotoxicosis, unspecified without thyrotoxic crisis or storm; E55.9 Vitamin D deficiency, unspecified; R74.01 Elevation of levels of liver transaminase levels; R80.9 Proteinuria, unspecified; R53.82 Chronic fatigue, unspecified; E78.00 Pure hypercholesterolemia, unspecified
CPT/HCPCS: 36415; 74177; 80053; 80061; 81001; 82043; 82150; 82306; 83036; 83690; 85025; Q9967

== ENCOUNTER 2025-08-10 07:58 | Outpatient (CLI) | payer BC, SELFPAY ==
[2025-08-10 21:29] LABS: MALB Creatinine Ratio 11.8 mg/g (0-30)
[2025-08-11 14:08] LABS: Deamidated Gliadin Abs, IgA 3 units (0-19); Deamidated Gliadin Abs, IgG 2 units (0-19); Immunoglobulin A, Qn 206 mg/dL (87-352)
== END 2025-08-10 07:59 | disposition home or self-care (01) ==
LOC: ANHGOSHLAB 08:01
PROVIDERS: PCP Internal Medicine; Visit Provider Clinical Nurse Specialist
DX: R19.7 Diarrhea, unspecified (principal); E11.29 Type 2 diabetes mellitus with other diabetic kidney complication; R80.9 Proteinuria, unspecified
CPT/HCPCS: 36415; 82043; 82784; 86231; 86258

== ENCOUNTER 2025-08-25 09:26 | Outpatient (CLI) | payer BC, SELFPAY ==
[2025-08-25 11:14] LABS: Hematocrit 39.3 % (37.0-47.0); Hemoglobin 13.0 g/dL (12.0-15.0); Immature Granulocyte Percent A 0.3 % (0-0.5); Lymphocytes Absolute Auto 2.39 K/mm3 (0.9-3.2); Mean Corpuscular HGB Conc 33.1 g/dl (32-36); Mean Corpuscular Hemoglobin 30.0 pg (26-34); Mean Corpuscular Volume 90.8 fl (80-100); Nucleated Red Blood Cells Absolute Auto 0.000 K/mm3 (0.0-0.012); Nucleated Red Blood Cells Perc 0.0 % (0.0-0.2); Platelet Count Result 326 k/mm3 (150-375); Red Blood Count 4.33 M/mm3 (4.2-5.4); White Blood Count 7.3 K/mm3 (4.5-10.0)
[2025-08-25 11:21] LABS: Alanine Aminotransferase 30 U/L (6-35); Albumin Level 4.5 g/dL (3.5-5.1); Alkaline Phosphatase 46 U/L (38-126); Anion Gap 8 mmol/L (4-12); Aspartate Amino Transferase 38 U/L (14-36); Bilirubin,Total 0.4 mg/dL (0.2-1.3); Blood Urea Nitrogen 7 mg/dL (7-17); Calcium 9.9 mg/dL (8.4-10.2); Carbon Dioxide 29 mmol/L (22-30); Chloride 101 mmol/L (98-107); Cholesterol 202 mg/dL (0-200); Estimated Glomerular Filt Rate > 60; Glucose 111 mg/dL (65-110); HDL Direct 41 mg/dL; Potassium 4.8 mmol/L (3.4-5.0); Sodium 138 mmol/L (137-145); Total Protein 7.5 g/dL (6.3-8.2); Triglycerides 200 mg/dL (<150)
[2025-08-25 11:23] LABS: Hemoglobin A1C 6.3 % (<5.7)
[2025-08-25 11:50] LABS: Thyroid Stimulating Hormone Reflex 1.140 uIU/mL (0.465-4.68)
[2025-08-25 12:15] LABS: Vitamin B12 652.0 pg/mL (239-931)
== END 2025-08-25 09:27 | disposition home or self-care (01) ==
LOC: ANHGOSHLAB 09:27
PROVIDERS: PCP Internal Medicine; Visit Provider Clinical Nurse Specialist
DX: R80.9 Proteinuria, unspecified (principal); E11.29 Type 2 diabetes mellitus with other diabetic kidney complication; E05.90 Thyrotoxicosis, unspecified without thyrotoxic crisis or storm; R74.8 Abnormal levels of other serum enzymes
CPT/HCPCS: 36415; 80053; 80061; 82607; 83036; 84443; 85025